=== PATIENT | male | born 1955 | race Caucasian/White ===

== ENCOUNTER → 2018-10-26 07:14 | Outpatient (CLI) | payer BC ==
[2015-12-23 14:23] VITALS: BMI 28.7
[~2018-10-26 07:14] MED LIST: AMBIEN10 MG PO; BAYER CHEWABLE81 MG PO; COREG12.5 MG PO; DURAGESIC1 PATCH .2 TRANSDERM; EXFORGE 10-1601 TAB PO; FLOVENT HFA 410.6 GM INH; K-TAB10 MEQ PO; LASIX20 MG PO; NITROSTAT0.4 MG SL; OXYCONTIN15 MG PO; PLAVIX75 MG PO; PRAVACHOL40 MG PO; PROAIR HFA8.5 GM INH; PROTONIX40 MG PO; VOLTAREN75 MG PO; XANAX0.25 MG PO; ZANAFLEX4 MG PO
== END | disposition home or self-care (01) ==
LOC: D.US 07:14
PROVIDERS: ATTEND Family Medicine
DX: I63.30 Cerebral infarction due to thrombosis of unspecified cerebral artery (principal)

== ENCOUNTER → 2018-11-02 10:13 | Outpatient (CLI) | payer BC ==
[2015-12-23 14:23] VITALS: BMI 28.7
[~2018-11-02 10:13] MED LIST changes: +DIOVAN320 MG PO; +LIPITOR40 MG PO; +MARINOL5 MG PO; +NEURONTIN 300300 MG PO; +NEURONTIN600 MG PO; +NEXIUM40 MG PO; +NORVASC5 MG PO; +REGLAN10 MG PO; +XOPENEX HFA15 GM INH; +ZOFRAN4 MG PO; +ZYRTEC10 MG PO
--- NOTE | 2018-11-08 14:39 | ST ---
PATIENT:JILL CANNON MEDICAL RECORD: [id number] SEX: M [facility] ORDER #: ADMISSION DATE: 11/02/18 AGE OF PATIENT: 62 REFERRING PHYSICIAN: INTERPRETING PHYSICIAN: CARMEN MADSEN MD DATE OF SERVICE: 11/02/2018 PROCEDURE: Nuclear stress test. INDICATION: Angina and coronary artery disease, shortness of breath. The patient was exercised on standard Lexiscan protocol with 32 mCi of sestamibi injected at peak stress, 11 mCi were used previously for rest images. FINDINGS: Gated SPECT reveals preserved ejection fraction at 52% with decreased thickening branch throughout the inferior segments. SPECT imaging Cardiolite was used as myocardial fusion agent. There is a fixed perfusion defect inferiorly compatible with a previous inferior myocardial infarction; however, there is reversible ischemia anteriorly and laterally. This includes basal, mid, apical, anterior segments as well as apical lateral, mid lateral, and basal lateral segments. The degree of reversibility is moderate. The amount of myocardial involved between the 2 defects is very large. OVERALL IMPRESSION: This is markedly abnormal nuclear stress test, ejection perfusion defect inferiorly, reversible ischemia anteriorly and laterally suggestive of multivessel coronary artery disease. We will proceed with coronary angiography as a followup study. TRANSINT:[id number] Voice Confirmation ID: [id number] DOCUMENT ID: [id number] CARMEN MADSEN MD at 1439 CC: [id number] DICTATION DATE: 11/03/181910 WIRE HARNESS DESIGN ENGINEER: 11/04/18 1345 DEP CLI 11/02/18 [place] [address] [place] [address]
== END | disposition home or self-care (01) ==
LOC: D.HCCARDIO 10:13
PROVIDERS: ATTEND Internal Medicine Interventional Cardiology
DX: I25.119 Atherosclerotic heart disease of native coronary artery with unspecified angina pectoris (principal)

== ENCOUNTER 2018-11-10 09:30 | Outpatient (CLI) | payer BC ==
[~2018-11-10] VITALS: Ht 177.8 cm; Wt 104.5 kg
--- NOTE | ~2018-11-10 | HEMODYNAMI ---
PATIENT:JILL CANNON MEDICAL RECORD: [id number] : 57 LOCATION:[facility] ADMISSION DATE: 11/10/18 Generatedon:11/10/201815:06 Patient name: JILL CANNON Patient #: [id number] SSN: : 1955 Date of study: 11/10/2018 Page: Of Hemodynamic Procedure Report Patient Data Patient Demographics Procedure consent was obtained First Name: JILL Gender: Male Last Name: DAVIS : 1955 [facility] Initial: D Age: 62 year(s) Patient #: [id number] Race: Additional ID: [id number] Contact details Address: [address] [place] [address] [facility] State: [place] City: [place] Zip code: [address] Past Medical History Allergies Allergen Reaction Date Comments Reported Sulfa drugs 12/24/2015 Other allergy 12/24/2015 pregabalin Other allergy 11/10/2018 SULFA, LYRICA Admission Admission Data Admission Date: 11/10/2018 Admission Time: 9:30 Lab Results Lab Result Date: 11/10/2018 Lab Result Time: 0:00 Biochemistry Name Units Result Min Max BUN mg/dl 29 --(----)-* 7 18 Creatinine mg/dl 1.7 --(----)-* 0.6 1.3 CBC Name Units Result Min Max Hematocrit % 36.4 *-(----)-- 42 54 Hemoglobin g/dl 12.6 -*(----)-- 13.5 17.5 Procedure Procedure Types Cath Procedure Diagnostic Procedure LHC LHC w/Coronaries w/Grafts PCI Procedure Coronary Stent Coronary Stent Initial Procedure Description Procedure Date Procedure Date: 11/10/2018 Procedure Start Time: 14:51 Procedure End Time: 15:05 Procedure Staff Name Function Brandon Martinez MD Performing Physician Carolee Bacon RT Scrub Petra Gonzalez RN Nurse Hugo Hickman RN Savings Teller Heather Ty RT Monitor Procedure Data Cath Procedure Fluoroscopy Diagnostic fluoroscopy Total fluoroscopy Time: 4 time: 4 min min Diagnostic fluoroscopy Total fluoroscopy dose: 709 dose: 709 mGy mGy Contrast Material Contrast Material Type Amount (ml) Isovue 300 61 Entry Location Entry Primary Successful Side Size Upsize Upsize Entry Closure Succes sful Closure Location (Fr) 1 (Fr) 2 (Fr) Remarks Device Remarks Femoral Right 5 Fr 6 Fr Exoseal artery Short Estimated blood loss: 5 ml Diagnostic catheters Device Type Used For End Catheter Placement MULTIPACK Pigtail 5 Fr LV Angiography catheter MULTIPACK JL 4.0 5Fr Left Coronary catheter Angiography MULTIPACK 3DRC 5Fr Right Coronary catheter Angiography DIAGNOSTIC AR2 MOD 5 Fr Multi-vessel catheter ([id number]) Angiography Procedure Complications No complications Procedure Medications Medication Administration Route Dosage 0.9% NaCl I.V. 100 ml/hr Oxygen etCO2 Nasal cannula 2 l/min Lidocaine 2% added to field 20 Heparin Flush Bag added to field 2 bags (1000units/500ml NS) Versed I.V. 2 mg Fentanyl I.V. 50 mcg Versed I.V. 2 mg Fentanyl I.V. 50 mcg Heparin Bolus I.V. 4000 units Hemodynamics Rest HGB: 12.6 (g/dl) Heart Rate: 65 (bpm) Pressure Samples Time Site Value (mmHg) Purpose Heart Use Rate(bpm) 14:52 LV 67/44,51 Snapshot 68 Snapshots Pre Cath Intra NCS Post Cath Vital Signs Time Heart Resp SPO2 etCO2 NIBP (mmHg) Rhythm Pain Sedation Rate (ipm) (%) (mmHg) Status Level (bpm) 14:36:34 68 13 97 40.2 146/93(130) NSR 0 (11) 10(A) , No pain 14:40:50 67 16 97 35.8 132/85(116) NSR 0 (11) 10(A) , No pain 14:44:58 67 12 98 32 109/69(85) NSR 0 (11) 10(A) , No pain 14:49:07 68 12 97 31 100/65(82) NSR 0 (11) 9(A) , No pain 14:53:09 67 19 97 20.1 116/74(94) NSR 0 (11) 9(A) , No pain 14:57:17 70 19 98 25 126/76(91) NSR 0 (11) 9(A) , No pain 15:01:27 72 16 97 11.9 120/72(103) NSR 0 (11) 10(A) , No pain 15:05:35 68 10 96 36.5 130/84(106) NSR 0 (11) 10(A) , No pain Medications Time Medication Route Dose Verified Delivered Reason Notes Effectiveness by by 14:41:55 0.9% NaCl I.V. 100 Brandon Petra used for ml/hr Michelle Gonzalez mailroom clerk 14:42:02 Oxygen etCO2 2 Brandon Petra used for Nasal l/min Michelle Gonzalez procedure cannula RN 14:42:09 Lidocaine 2% added 20ml Brandon Brandon for local to vial Michelle Martinez MD anesthetic field 14:42:14 Heparin Flush added 2 Brandon Brandon used for Bag to bags Michelle Martinez MD procedure (1000units/500ml field NS) 14:42:21 Versed I.V. 2 mg Brandon Petra for sedation Michelle Gonzalez RN 14:42:29 Fentanyl I.V. 50 Brandon Petra for sedation mcg Michelle Gonzalez RN 14:46:38 Versed I.V. 2 mg Brandon Petra for sedation Michelle Gonzalez RN 14:46:42 Fentanyl I.V. 50 Brandon Petra for sedation mcg Michelle Gonzalez RN 14:57:47 Heparin Bolus I.V. 4000 Brandon Petra for verif ied units Michelle Gonzalez anticoagulation with Dr. PEDRO LUIS Martinez Procedure Log Time Note 14:20:12 Hugo Hickman RN sent for patient. Start room use. 14:28:09 Signed procedure consent form obtained from patient. 14:28:10 Diagnostic Cath status Elective 14:29:19 Time tracking: Regular hours (M-F 7:00 - 5:00) 14:29:23 Plan of Care:Hemodynamics will remain stable., Cardiac rhythm will remain stable., Comfort level will be maintained., Respiratory function will remain adequate., Patient/ family verbilizes understanding of procedure., Procedure tolerated without complication., Recovers from procedure without complications.. 14:30:23 Patient received from Pre/Post Procedure Room to [facility] 1 Alert and oriented. Tansferred to table in Supine position. 14:30:24 Warm blankets applied, and asuncion hugger turned on for patient comfort. 14:30:24 Correct patient and procedure confirmed by team. 14:30:25 ECG and BP/O2 sat monitors applied to patient. 14:31:31 Patient allergic to Other allergySULFA, LYRICA 14:31:56 Lab Result : Creatinine 1.7 mg/dl 14:31:56 Lab Result : BUN 29 mg/dl 14:31:56 Lab Result : Hemoglobin 12.6 g/dl 14::56 Lab Result : Hematocrit 36.4 % 14:35:34 Baseline sample Acquired. 14:35:34 Vital chart was started 14:35:38 Rhythm: sinus rhythm 14:35:41 Full Disclosure recording started 14:35:45 H&P Date Dictated: 11/10/2018 Within 30 days and on chart., H&P Addendum completed by physician on day of procedure. (MUST COMPLETE FOR ALL OUTPATIENTS). 14:35:46 Pre-procedure instructions explained to patient. 14:35:47 Pre-op teaching completed and patient verbalized understanding. 14:35:49 Family in patients room. 14:35:51 Patient NPO since Midnight. 14:35:53 Is the patient allergic to Iodine/contrast media? No. 14:35:55 Was the patient premedicated? No 14:35:56 Is patient on blood thinner?Yes 14:35:58 ACC The patient was administered the following blood thiners within the last 24 hours: ACCPlavix 14:36:01 Patient diabetic? No. 14:36:05 Previous problem with sedation/anesthesia? No ? 14:36:07 Snore? Yes 14:36:08 Sleep apnea? Yes 14:36:09 Deviated septum? No 14:36:10 Opens mouth fully? Yes 14:36:11 Sticks out tongue? Yes 14:36:14 Airway obstruction? No ? 14:36:16 Dentures? No ? 14:36:19 Dentures? No ? 14:36:23 Pre procedure: right dorsailis pedis pulse 2+ Normal; easily identifiable; not easily obliterated 14:36:25 Pre procedure: left dorsailis pedis pulse 2+ Normal; easily identifiable; not easily obliterated 14:36:27 Patient pain scale 0/10 ?. 14:36:38 IV patent on arrival in left forearm with 0.9% NaCl at [facility]. 14:36:45 Lab results completed and on chart. 14:36:52 Right groin area was prepped with chlora-prep and draped in sterile fashion 14::53 Alarms reviewed by R. N. 14:36:53 Sharps counted by scrub and verified by R.N. 14:40:42 Baseline sample Acquired. 14:41:23 Physician arrived 14::28 --------ALL STOP TIME OUT------ 14::29 Final Timeout: patient, procedure, and site verified with staff and physician. All members of the team are in agreement. 14:41:32 Right groin site verified by team. 14:41:35 Maximum allowable Isovue 300 dose 300ml. Physician notified. (300ml for normal creatinines. For patients with creatinine of 1.7 or higher multiply weight(kg) x 5 divided by creatinine.) 14:41:39 Fire Safety Assessment: A--An alcohol-based skin anteseptic being used preoperatively., C--Open oxygen or nitrous oxide is being used., D--An ESU, laser, or fiber-optic light is being used. 14:41:43 Physical assessment completed. ASA score P 2 - A patient with mild systemic disease as per Brandon Martinez MD. 14:41:47 Sedation plan: IV Moderate Sedation Medication:Versed, Fentanyl 14:41:55 0.9% NaCl 100 ml/hr I.V. was administered by Petra Gonzalez RN; used for procedure; 14:42:02 Oxygen 2 l/min etCO2 Nasal cannula was administered by Petra Gonzalez RN; used for procedure; 14:42:09 Lidocaine 2% 20ml vial added to field was administered by Brandon Martinez MD; for local anesthetic; 14:42:14 Heparin Flush Bag (1000units/500ml NS) 2 bags added to field was administered by Brandon Martinez MD; used for procedure; 14:42:21 Versed 2 mg I.V. was administered by Petra Gonzalez RN; for sedation; 14:42:29 Fentanyl 50 mcg I.V. was administered by Petra Gonzalez RN; for sedation; 14:46:38 Versed 2 mg I.V. was administered by Petra Carlos RN; for sedation; 14:46:42 Fentanyl 50 mcg I.V. was administered by Petra Gonzalez RN; for sedation; 14:51:17 Use device set Femoral Dx 14:51:18 ACIST Syringe (66585) opened to sterile field. 14:51:19 Bag Decanter (2002S) opened to sterile field. 14:51:19 Medline Cath Pack ([id number]) opened to sterile field. 14:51:20 DIAGNOSTIC WIRE .035 260cm J wire (364681) opened to sterile field. 14:51:21 ACIST Hand Control (14323) opened to sterile field. 14:51:21 ACIST Manifold (82440) opened to sterile field. 14:51:22 DIAGNOSTIC Multipack 5Fr catheter set (QR1991) opened to sterile field. 14:51:22 Tegaderm 4 x 4 (1626W) opened to sterile field. 14:51:24 SHEATH 5FR Haviland (ZDV570) opened to sterile field. 14:51:28 Procedure started. 14:51:32 Local anesthetic to right femoral artery with Lidocaine 2% by Brandon Martinez MD.INITIAL ACCESS ONLY 14:51:56 A 5 Fr sheath was inserted into the Right Femoral artery 14:52:21 A MULTIPACK Pigtail 5 Fr catheter was advanced over the wire and used for LV Angiography. 14:52:37 LV hemodynamics recorded. 14:52:38 LV gram done using ZAMARRIPA 14:52:41 Injector settings: Ml/sec: 5, Volume: 15, 14:52:48 EF : 40 % 14:52:51 Catheter removed. 14:52:59 A MULTIPACK JL 4.0 5Fr catheter was advanced over the wire and used for Left Coronary Angiography. 14:53:35 LCA angiography performed. 14:53:37 Injector settings: Ml/sec: 3, Volume: 6, 14:53:47 A MULTIPACK 3DRC 5Fr catheter was advanced over the wire and used for Right Coronary Angiography. 14:55:47 EUGENE to LAD angiography performed. 14:55:54 RCA angiography performed. 14:55:57 Injector settings: Ml/sec: 3, Volume: 6, 14:56:10 Catheter removed. 14:56:18 A DIAGNOSTIC AR2 MOD 5 Fr catheter ([id number]) was advanced over the wire and used for Multi-vessel Angiography. 14:56:34 SHEATH 6FR Haviland (SHR441) opened to sterile field. 14:56:35 INFLATOR Merit BasixCompak (ER9613) opened to sterile field. 14:56:36 CHOICE PT Extra Support 182cm wire ([id number]) opened to sterile field. 14:57:15 SVG to Circ angiography performed. 14:57:26 Catheter removed. 14:57:47 Heparin Bolus 4000 units I.V. was administered by Petra Gonzalez RN; for anticoagulation; verified with Dr. Martinez 14:57:50 GUIDE 6FR 3DRC catheter (IA42VVI) opened to sterile field. 14:57:55 Proceeding to intervention. 14:58:02 Sheath upsized to a 6 Fr Short. 14:58:06 6 Fr 3DRC guide catheter was inserted over the wire 14:58:27 CHOICE PT wire advanced. 14:59:06 Wire advanced across lesion. 15:00:30 Place stent Inflation Number: 1 A MICHAEL RX 3.5 x 15 stent ([id number]) was prepped and advanced across the Mid RCA. The stent was deployed at 17 THEODORA for 0:10 (min:sec). 15:01:02 Inflation number: 1 The stent balloon was then re-inflated across the Prox RCA to 17 THEODORA for 0:10 (min:sec). 15:01:08 Inflation number: 2 The stent balloon was then re-inflated across the Prox RCA to 17 THEODORA for 0:10 (min:sec). 15:02:10 Stent catheter was removed intact over wire. 15:02:11 Wire removed. 15:02:12 Guide catheter removed. 15:02:21 EXOSEAL 6Fr (EX600) opened to sterile field. 15:02:30 Sheath removed intact; hemostasis achieved with Exoseal to the Right Femoral artery. 15:02:32 Procedure ended.(Physican Out) 15:03:14 Fluoroscopy time 04.00 minutes. 15:03:19 Fluoroscopy dose: 709 mGy 15:03:19 Flurop Dose total: 709 15:04:25 Contrast amount:Isovue 300 61ml. 15:04:27 Sharps counted by scrub and verified by R.N. 15:04:28 Insertion/operative site no bleeding no hematoma. 15:04:31 Post-op/insertion site Right Femoral artery dressed using a 4 x 4 and Tegaderm. 15:04:34 Post right femoral artery:stable 15:04:35 Post Procedure Pulses reassessed and unchanged 15:04:38 Post procedure rhythm: unchanged. 15:04:41 Estimated blood loss: 5 ml 15:04:43 Post procedure instruction explained to patient.Patient verbalizes understanding. 15:04:44 Patient needs reinforcement of post procedure teaching. 15:04:53 Procedure type changed to Cath procedure, Diagnostic procedure, LHC, LHC w/Coronaries w/Grafts, PCI procedure, Coronary Stent, Coronary Stent Initial 15:04:57 Procedure and supply charges have been captured, reviewed, submitted and are correct. 15:05:01 Procedure Complication : No complications 15:05:07 Vital chart was stopped 15:05:10 Report given to Pre/Post Procedure Room. 15:05:13 Patient transfered to Pre/Post Procedure Room with Stretcher. 15:05:15 Procedure ended. 15:05:15 Full Disclosure recording stopped 15:05:21 ACC-PCI Only Patient was given prescriptions, or instructed by Brandon Martinez MD to start/continue the following medications upon discharge: Plavix 15:05:23 End room use (Document Last) Intervention Summary Intervention Notes Time ActionType Lesion and Equipment Used Action# Pressure Duration Attributes 15:00:30 Place stent Mid RCA MICHAEL RX 3.5 x 1 17 00:10 15 stent ([id number]) 15:01:02 Reinflate Prox RCA MICHAEL RX 3.5 x 1 17 00:10 stent 15 stent balloon ([id number]) 15:01:08 Reinflate Prox RCA MICHAEL RX 3.5 x 2 17 00:10 stent 15 stent balloon ([id number]) Device Usage Item Name Manufacture Quantity Catalog Number Hospital Part Current M inimal Lot# / Charge Number Stock Stock Serial# Code ACIST Syringe Acist 1 16480 791190 014630 646932 2 0 (44412) Medical Systems Inc Bag Decanter Microtek 1 465754 46012 589316 5 () Medical Inc. Medline Cath Medline 1 [id number] 095158 28969 955171 5 Pack ([id number]) DIAGNOSTIC St Pedrito 1 323671 055096 528037 473387 3 0 WIRE .035 260cm J wire (416203) ACIST Hand Acist 1 02418 665524 005155 425751 5 Control Medical (01664) Systems Inc ACIST Manifold Acist 1 34869 344220 808516 597802 5 (93092) Medical Systems Inc DIAGNOSTIC Cardinal 1 RI5806 856115 66545 703761 3 0 Multipack 5Fr Health catheter set (BK4848) Tegaderm 4 x 4 3M 1 1626W 887502 097244 437563 5 (1626W) SHEATH 5FR Terumo 1 NWF285 256281 593909 358452 5 Haviland (CBH506) MULTIPACK Cardinal 1 728819 5 Pigtail 5 Fr Health catheter MULTIPACK JL Cardinal 1 038358 5 4.0 5Fr Health catheter MULTIPACK 3DRC Cardinal 1 974710 5 5Fr catheter Health DIAGNOSTIC AR2 Cardinal 1 [id number] 057547 889009 968419 2 0 MOD 5 Fr Health catheter ([id number]) SHEATH 6FR Terumo 1 IWB676 833998 424205 685250 4 0 Haviland (NBV580) INFLATOR Merit Merit 1 EB5430 859047 093512 792829 1 5 Help.comGarfield Memorial HospitalVenyo (UP6779) CHOICE PT [place] 1 [id number] 431908 036887 290878 5 Extra Support Scientific 182cm wire ([id number]) GUIDE 6FR 3DRC Medtronic 1 AD71OLY 547981 324477 545220 1 catheter ([id number]) MICHAEL RX 3.5 x Medtronic 1 [id number] 678472 4569372 779876 5 [id number] 15 stent ([id number]) EXOSEAL 6Fr Cardinal 1 EX600 348461 910901 790054 1 0 (EX600) Health Signature Audit Farrell Stage Time Signature Unsigned Intra-Procedure 11/10/2018 Heather Ty 3:06:01 PM RT(R) Signatures Monitor : Heather Ty RT Signature : Date : Time : [facility] [address] [place] [address]
--- NOTE | ~2018-11-10 | OP ---
PATIENT NAME: JILL CANNON MEDICAL RECORD: [id number] :57 LOCATION:D.CAT ADMISSION DATE: SURGEON: CARMEN MADSEN MD DATE OF OPERATION: 11/10/2018 PROCEDURES: 1. PTCA stent RCA. 2. Left heart catheterization. 3. Selective coronary angiography. 4. Left ventriculogram. 5. EUGENE angiography. 6. Vein graft angiography. INDICATION: Angina and coronary artery disease. PROCEDURE PERFORMED: After informed consent was obtained and after a detailed description of risks, benefits as well as alternative therapies, the patient elected to proceed with angiogram and angioplasty. The right femoral area was prepped and draped in normal sterile fashion. Right femoral artery was cannulated via modified Seldinger technique with placement of 6-Anguillan sheath. All catheters exchanged through this sheath. FINDINGS: Left ventriculogram was performed in standard 30-degree ZAMARRIPA view reveals global hypokinesis throughout all segments. Overall ejection fraction 40%. SELECTIVE CORONARY ANGIOGRAPHY: 1. Left main is with no significant angiographic disease. 2. Left anterior descending is totally occluded. 3. Left circumflex is totally occluded. 4. The right coronary has previously placed stents, these are patent; however, there is 75% in-stent restenosis in the proximal mid vessel. 5. EUGENE to the LAD is widely patent. Distal LAD is diffusely diseased are widely patent. 6. Vein graft to the circumflex is widely patent. Distal circumflex is widely patent. PTCA STENT OF THE AMBLER RCA: The stent used was a 3.5 x 15 mm Haim. Result was 0% residual stenosis. OVERALL IMPRESSION: Successful percutaneous transluminal coronary angioplasty stent of the right coronary artery going from 75% initial stenosis to 0% residual. TRANSINT:[id number] Voice Confirmation ID: [id number] DOCUMENT ID: [id number] CARMEN MADSEN MD CC: [id number] DICTATION DATE: 11/10/18 1505 BRIDAL CONSULTANT: 11/11/18 0120 DEP CLI 11/10/18 [place] [id number]
[~2018-11-10 09:30] MED LIST changes: -DIOVAN320 MG PO; -LIPITOR40 MG PO; -MARINOL5 MG PO; -NEURONTIN 300300 MG PO; -NEURONTIN600 MG PO; -NEXIUM40 MG PO; -NORVASC5 MG PO; -REGLAN10 MG PO; -XOPENEX HFA15 GM INH; -ZOFRAN4 MG PO; -ZYRTEC10 MG PO
[2018-11-10] MEDS ORDERED: ZYRTEC10 MG PO (09:52)
[2018-11-10] MEDS ORDERED: NEXIUM40 MG PO (09:54)
[2018-11-10] MEDS ORDERED: REGLAN10 MG PO (09:57)
[2018-11-10] MEDS ORDERED: NEURONTIN600 MG PO (10:00)
[2018-11-10] MEDS ORDERED: NEURONTIN 300300 MG PO (10:00)
[2018-11-10] MEDS ORDERED: LIPITOR40 MG PO (10:01)
[2018-11-10] MEDS ORDERED: NORVASC5 MG PO (10:03)
[2018-11-10] MEDS ORDERED: DIOVAN320 MG PO (10:04)
[2018-11-10 10:05] VITALS: BP 114/66; Ht 177.8 cm; Wt 104.5 kg
[2018-11-10] MEDS ORDERED: ZOFRAN4 MG PO (10:05)
[2018-11-10] MEDS ORDERED: ZANAFLEX4 MG PO (10:07)
[2018-11-10] MEDS ORDERED: XOPENEX HFA15 GM INH (10:08)
[2018-11-10] MEDS ORDERED: MARINOL5 MG PO (10:10)
[2018-11-10 10:13] LABS: BASOPHILS 0.5 % (0-2); HEMATOCRIT 36.4 % (42.0-54.0); HEMOGLOBIN 12.6 g/dL (13.5-17.5); IMMATURE GRANULOCYTES 0.3 % (0-5); LYMPHOCYTES 29.6 % (15-50); MCH 31.9 pg (26.0-34.0); MCHC 34.6 g/dL (31.0-37.0); MCV 92.2 fL (80.0-100.0); MEAN PLATELET VOLUME 9.6 fL (7.4-10.4); MONOCYTES 12.1 % (2-11); NEUTROPHILS 51.5 % (40-80); PLATELET COUNT 193 10x3/uL (130-400); RBC 3.95 10x6/uL (4.20-6.10); RDW 12.3 % (11.5-14.5)
[2018-11-10 10:27] LABS: ANION GAP 13.1 mmol/L (8-16); CALCIUM 8.6 mg/dL (8.5-10.1); CARBON DIOXIDE 26.3 mmol/L (21.0-32.0); CREATININE - SERUM 1.7 mg/dL (0.6-1.3); POTASSIUM - SERUM 4.4 mmol/L (3.5-5.1)
--- NOTE | 2018-11-10 15:20 | NUR ---
PT RECEIVED VIA STRETCHER FROM CASINO MANAGER FOR RECOVERY. PT DROWSY, BUT VERBALLY AROUSABLE. 6FR EXOCELE TO R GROIN, DRESSING CDI NO BLEEDING OR HEMATOMA NOTED. HR NSR RATE 68, BP 153/94, O2 SAT 99 ON 2L/NC OF O2. PT INSTRUCTED TO KEEP HEAD FLAT ON PILLOW AND R LEG STRAIGHT, HE VERBALIZED UNDERSTANDING. CALL LIGHT IN REACH, AT BEDSIDE.
--- NOTE | 2018-11-10 15:30 | NUR ---
PT RESTING COMFORTABLY, DENIES PAIN OR NEEDS. R GROIN SOFT NO BLEEDING OR SWELLING NOTED. PEDAL PULSES PALPABLE. VSS. CALL LIGHT IN REACH
--- NOTE | 2018-11-10 16:04 | NUR ---
PT RESTING COMFORTABLY, R GROIN REMAINS SOFT, DRESSING CDI NO BLEEDING OR SWELLING NOTED. PT DENIES PAIN OR NEEDS. CALL LIGHT IN REACH. TOLERATING SIPS OF SPRITE.
--- NOTE | 2018-11-10 16:35 | NUR ---
PT RESTING W EYES CLOSED, RESP EVEN AND UNLABORED. R GROIN REMAINS SOFT, NO BLEEDING OR HEMATOMA NOTED. R LEG PINK AND WARM, PEDAL PULSES PALPABLE. HR NSR RATE 75, BP 152/102. PT TAKES BP MEDS BID, SO HE TOOK HIS EVENING DOSE. AT BEDSIDE
--- NOTE | 2018-11-10 16:59 | NUR ---
PT STILL SLEEPING, R GROIN DRESSING REMAINS CDI NO BLEEDING OR SWELLING NOTED. AT BEDSIDE, CALL LIGHT IN REACH. BP SOME BETTER, 157/98. PT DENIES PAIN OR DISCOMFORT.
--- NOTE | 2018-11-10 17:29 | NUR ---
R GROIN DRESSING REMAINS CDI, NO BLEEDING OR SWELLING NOTED. PEDAL PULSES PALPABLE. BP 137/77, HR 69. AT BEDSIDE, CALL LIGHT IN REACH. REPORT GIVEN TO Evert WALLACE RN TO ASSUME CARE
--- NOTE | 2018-11-10 17:35 | NUR ---
RECEIVED REPORT FROM TYRON CLOUD, ASSUMING CARE OF PATIENT. RIGHT GROIN DRESSING IS CDI, NO S/S OF BLEEDING OR HEMATOMA. VSS ON 1L NC. TOLERATING PO FLUIDS, NO N/V.
--- NOTE | 2018-11-10 18:00 | NUR ---
HEAD OF BED ELEVATED TO 30 DEGREES. RIGHT GROIN DRESSING IS CDI, NO S/S OF BLEEDING OR HEMATOMA. NO C/O PAIN, NUMBNESS, OR TINGLING. VSS ON ROOM AIR.
--- NOTE | 2018-11-10 18:30 | NUR ---
HEAD OF BED AT 90 DEGREES, PATIENT EATING SANDWICH AND DRINKING SPRITE. NO N/V. RIGHT GROIN DRESSING IS CDI, NO S/S OF BLEEDING OR HEMATOMA. NO C/O PAIN, NUMBNESS, OR TINGLING. VSS ON ROOM AIR.
--- NOTE | 2018-11-10 18:45 | NUR ---
IV REMOVED. HEAD OF BED AT 90 DEGREES, RIGHT GROIN DRESSING IS CDI, NO S/S OF BLEEDING OR HEMATOMA. NO C/O PAIN, NUMBNESS, OR TINGLING. VSS ON ROOM AIR. EDUCATION REGARDING DISCHARGE INSTRUCTIONS AND MEDICATION COMPLIANCE GIVEN TO PATIENT AND SPOUSE, BOTH VOICE UNDERSTANDING.
--- NOTE | 2018-11-10 19:00 | NUR ---
PATIENT VOIDED WITHOUT DIFFICULTY. PATIENT TRANSPORTED VIA WHEELCHAIR TO CAR WITH SPOUSE DRIVING, ALL BELONGINGS WITH PATIENT.
== END 2018-11-10 19:00 ==
LOC: D.CATH 09:30
PROVIDERS: ATTEND Internal Medicine Interventional Cardiology
DX: I25.110 Atherosclerotic heart disease of native coronary artery with unstable angina pectoris (principal); R94.30 Abnormal result of cardiovascular function study, unspecified

== ENCOUNTER → 2019-01-30 09:54 | Outpatient (CLI) | payer BC ==
[2018-11-10 10:05] VITALS: BMI 33.0
[~2019-01-30 09:54] MED LIST changes: +DIOVAN320 MG PO; +LIPITOR40 MG PO; +MARINOL5 MG PO; +NEURONTIN 300300 MG PO; +NEURONTIN600 MG PO; +NEXIUM40 MG PO; +NORVASC5 MG PO; +REGLAN10 MG PO; +XOPENEX HFA15 GM INH; +ZOFRAN4 MG PO; +ZYRTEC10 MG PO
--- NOTE | 2019-02-05 18:38 | EC ---
PATIENT:JILL CANNON DATE OF SERVICE: 01/30/19 SEX: M MEDICAL RECORD: [id number] DATE OF : 57 [facility] AGE OF PATIENT: 63 ADMISSION DATE: 01/30/19 REFERRING PHYSICIAN: INTERPRETING PHYSICIAN: CARMEN MARTINEZ MD ECHOCARDIOGRAM REPORT ECHO CHARGES 4 ECHO COMPLETE Date: 01/30/19 CLINICAL DIAGNOSIS: A-FIB/DIZZINESS/FATIGUE H/O CAD ECHOCARDIOGRAPHIC MEASUREMENTS (adult normal given) AC root (d.<3.7cm) 3.4 cm LV Septum d (<1.2 cm> 1.0 cm Valve Excursion 2.1 cm LV Septum (systole) 1.6 cm Left Atria (s.<4.0cm> 5.7 cm LVPW d(<1.2cm) 1.0 cm RV (d.<2.3cm) 3.0 cm LVPW (sytole) 1.7 cm LV diastole(<5.6CM) 7.1 cm MV E-F(>70mm/sec) cm LV systole 4.8 cm LVOT Diameter 2.0 cm MV exc.(>10mm) cm Est.ejection fraction (50-75%) % DOPPLER: LVIT cm/sec A 33.0 cm/sec E 59.0 cm/sec LA cm/sec RVSP 39.0 mmHg LVOT 90.0 cm/sec AOP1/2T m/s Asc. Ao 116 cm/sec RVOT 44.0 cm/sec RA cm/sec PA 91.0 cm/sec AV Gradient Peak 5.4 mmHg AV Mean 3.2 mmHg AV Area 2.7 cm MV Gradient Peak 2.3 mmHg MV Mean 0.96 mmHg MV Area cm COMMENTS: OP - HC Configuration Management Administrator: 1 PATRICK SUNSET Courtesy Booth Cashier: 1 Dr. Martinez TAPE# PACS Pericardial Effusion Y DATE OF SERVICE: 01/30/2019 FINDINGS: 1. Left ventricular chamber size is mildly dilated. Left ventricular systolic function is preserved at 50%. 2. Left atrium, right atrium, and right ventricular chamber sizes are moderately dilated. Left atrium measures 5.7 cm. 3. Valvular structures have normal structure and motion. 4. Doppler interrogation reveals moderate mitral regurgitation and moderate tricuspid regurgitation. No other valvular insufficiency or stenosis. ECHOCARDIOGRAM REPORT [id number] JILL CANNON Pulmonary systolic pressure is normal, estimated at 39 mmHg. 5. No evidence of pericardial effusion or left ventricular thrombus. TRANSINT:[id number] Voice Confirmation ID: [id number] DOCUMENT ID: [id number] CARMEN MARTINEZ MD at 1838 CC: [id number] DICTATION DATE: 01/30/19 1609 BUFFING MACHINE TENDER: 01/30/19 1708 DEP CLI 01/30/19 [place] [id number] [place] [id number]
== END | disposition home or self-care (01) ==
LOC: D.HCCARDIO 09:54
PROVIDERS: ATTEND Internal Medicine Interventional Cardiology
DX: I48.91 Unspecified atrial fibrillation (principal)